=== PATIENT | female | born 1980 | race Caucasian/White ===

== ENCOUNTER → 2019-03-01 | Outpatient (CLI) | payer BC ==
[~2019-03-01] MED LIST: MOTRIN 600600 MG/TAB PO; PERCOCET 325 MG1 TA2 PO; PRENATAL
== END ==
LOC: MC.RAD 13:00
DX: N64.52 Nipple discharge (principal)
CPT/HCPCS: G0279

== ENCOUNTER → 2024-01-06 | Outpatient (CLI) | payer BC | LOC: MC.RAD 10:59 | DX: Z12.31 Encounter for screening mammogram for malignant neoplasm of breast (principal) ==